=== PATIENT | female | born 1995 | race Caucasian/White ===

== ENCOUNTER → 2018-03-03 | Outpatient (CLI) | payer OTHER ==
[~2018-03-03] MED LIST: ALPR-429 PO; CEPH500C24 PO; LOR5/325 PO; OXYC-869 PO
[2018-03-03 10:13] LABS: PLATELET COUNT, AUTOMATED 332 K/uL (150-450)
== END ==
LOC: LAB 09:52
PROVIDERS: ATTEND Nurse Practitioner Family
DX: K59.00 Constipation, unspecified (principal); F41.9 Anxiety disorder, unspecified
CPT/HCPCS: 36415; 82040; 82247; 82310; 82374; 82435; 82565; 82947; 84075; 84132; 84155; 84295; 84443; 84450; 84460; 84520; 85025

== ENCOUNTER 2019-03-29 20:35 | Emergency (ER) | payer OTHER ==
[~2019-03-29 20:35] MED LIST changes: +ESZ3PT PO; +SERT-1 PO
[2019-03-29 20:48] VITALS: BP 117/87
--- NOTE | 2019-03-29 21:01 | ER Report ---
History and Physical Time Seen By MD: 20:52 HPI/ROS CHIEF COMPLAINT: suicidal thoughts and plan HISTORY OF PRESENT ILLNESS: This is a 23 year old female. She is having suicidal thoughts with plan to hang herself. Has been on sertraline, but not taking. Counselor suggested need to come to the hospital for treatment. She has prior suicidal thoughts, but no attempt. No prior hospitalization. Denies other medical problems at this time. Denies self harm behaviors tonight. No alcohol or drug use. REVIEW OF SYSTEMS: Constitutional: No fever or chills. ENT: No sore throat. No congestion. Cardiovascular: No chest pain. No palpitations or racing heart. Respiratory: No cough. No shortness of breath. Gastrointestinal: No abdominal pain. No nausea or vomiting. No diarrhea or problems with bowels. Genitourinary: No dysuria. No frequency Musculoskeletal: No musculoskeletal pain. Skin: No rashes. Neurological: No weakness. No headache. Allergies: Coded Allergies: No Known Drug Allergies (Unverified , 09/13/15) Home Meds Active Scripts Sertraline Hcl (ZOLOFT) 50 Mg Tablet, 1 TAB PO QDAY, #30 TAB 3 Refills Prov:CHARLY TRUJILLO MD 08/24/18 Discontinued Scripts Eszopiclone (LUNESTA) 3 Mg Tablet, 1 TAB PO HS PRN for sleeplessness, #10 TAB 0 Refills Prov:CHARLY TRUJILLO MD 10/05/18 Reviewed Nurses Notes: Yes Hx Smoking: No Smoking Status: Never Smoker Exposure to Second Hand Smoke?: No Hx Substance Use Disorder: No Hx Alcohol Use: No Constitutional Vital Sign - Last 24 Hours 03/29/19 20:48 Temp 99.5 Pulse 92 Resp 20 B/P (MAP) 117/87 Pulse Ox 93 O2 Delivery Room Air Physical Exam General Appearance: The patient is alert. No acute distress. Eyes: Pupils are equal, round. No pallor, injection or icterus. ENT: Mucous membranes are moist. Normal oral mucosa. Posterior oropharynx is normal. Neck: Supple and non tender. Respiratory: Lungs are clear to auscultation. Cardiovascular: Regular rate and rhythm. No murmurs, gallops or rubs. Normal capillary refill. Gastrointestinal: Abdomen is soft and non tender. Nondistended. Normal active bowel sounds. Neurological: Alert and oriented x3. Skin: Warm and dry. No rashes. Musculoskeletal: Full range of motion. No pain DIFFERENTIAL DIAGNOSIS: After history and physical exam, differential diagnosis was considered for suicidal thoughts with plan, needing to be admitted, and is voluntary for admission to [facility]. Medical Decision Making Data Points Result Diagram: 03/29/19 2100 03/29/19 2100 Laboratory Hematology Test 03/29/19 21:00 White Blood Count 9.1 k/uL (4.5-11.0) Red Blood Count 5.09 M/uL (4.17-5.56) Hemoglobin 15.5 g/dL (12.0-16.0) Hematocrit 43.3 % (34.0-47.0) Mean Corpuscular Volume 85.1 fL (80.0-96.0) Mean Corpuscular Hemoglobin 30.4 pg (26.0-33.0) Mean Corpuscular Hemoglobin Concent 35.7 g/dL (32.0-36.0) Red Cell Distribution Width 13.2 % (11.5-14.5) Platelet Count 413 K/uL (150-450) Mean Platelet Volume 7.1 fL (7.2-11.1) L Neutrophils (%) (Auto) 49.0 % (39.4-72.5) Lymphocytes (%) (Auto) 39.4 % (17.6-49.6) Monocytes (%) (Auto) 8.9 % (4.1-12.4) Eosinophils (%) (Auto) 2.1 % (0.4-6.7) Basophils (%) (Auto) 0.6 % (0.3-1.4) Nucleated RBC Relative Count (auto) 0.0 /100WBC Neutrophils # (Auto) 4.4 K/uL (2.0-7.4) Lymphocytes # (Auto) 3.6 K/uL (1.3-3.6) Monocytes # (Auto) 0.8 K/uL (0.3-1.0) Eosinophils # (Auto) 0.2 K/uL (0.0-0.5) Basophils # (Auto) 0.1 K/uL (0.0-0.1) Nucleated RBC Absolute Count (auto) 0.00 K/uL Chemistry Test 03/29/19 21:00 Sodium Level 138 mmol/L (137-145) Potassium Level 4.1 mmol/L (3.5-5.0) Chloride Level 102 mmol/L (98-107) Carbon Dioxide Level 25 mmol/L (22-31) Blood Urea Nitrogen 13 mg/dl (7-18) Creatinine 0.80 mg/dl (0.52-1.04) Glomerular Filtration Rate Calc > 60.0 Random Glucose 92 mg/dl (75-110) Calcium Level 9.3 mg/dl (8.4-10.2) Magnesium Level 2.2 mg/dl (1.7-2.2) Total Bilirubin 0.4 mg/dl (0.2-1.3) Aspartate Amino Transf (AST/SGOT) 21 U/L (0-35) Alanine Aminotransferase (ALT/SGPT) 27 U/L (0-56) Alkaline Phosphatase 71 U/L (0-126) Total Protein 7.7 g/dl (6.3-8.2) Albumin 4.3 g/dl (3.5-5.0) Toxicology Test 03/29/19 20:39 03/29/19 21:00 Urine Opiates Screen Negative Urine Barbiturates Screen Negative Ur Tricyclic Antidepressants Screen Negative Urine Phencyclidine Screen Negative Urine Amphetamines Screen Negative Urine Benzodiazepines Screen Negative Urine Cocaine Screen Negative Urine Cannabinoids Screen Negative Salicylates Level < 10 mg/L Salicylate Last Dose Date unk Acetaminophen Level < 10 ug/ml Serum Alcohol < 10 mg/dl Urinalysis Test 03/29/19 20:39 Urine Color Straw Urine Clarity Clear Urine pH 5.0 pH (4.8-9.5) Urine Specific [place] 1.014 Urine Protein Negative mg/dL (NEGATIVE) Urine Glucose (UA) Negative mg/dL (NEGATIVE) Urine Ketones Negative mg/dL (NEGATIVE) Urine Blood Negative (NEGATIVE) Urine Nitrite Negative (NEGATIVE) Urine Bilirubin Negative (NEGATIVE) Urine Urobilinogen Negative mg/dL (0.2-1.9) Urine Leukocyte Esterase Trace (NEGATIVE) Urine RBC 1 /HPF (0-2/HPF) Urine WBC 2 /HPF (0-5/HPF) Urine Squamous Epithelial Cells Many /LPF (</=FEW) Urine Bacteria Few /HPF (NONE-FEW) Urine Mucus None /HPF (NONE-FEW) Urine HCG, Qualitative Negative (NEGATIVE) ED Course/Re-evaluation ED Course Labs obtained. Unremarkable. Reviewed these with Dr. Tellez who accepted the patient to [facility] on voluntary basis. Decision to Disposition Date: Mar 29, 2019 Decision to Disposition Time: 21:59 Depart Departure Latest Vital Signs Vital Signs Date Time Temp Pulse Resp B/P (MAP) Pulse Ox O2 Delivery O2 Flow Rate FiO2 03/29/19 20:48 99.5 92 20 117/87 93 Room Air Impression: Primary Impression: Suicidal ideation Condition: Condition Unchanged Disposition: XFER TO [facility] Referrals: CHARLY TRUJILLO MD (PCP) SOWMYA NICHOLS MD Mar 29, 2019 21:01
[2019-03-29 21:26] LABS: PLATELET COUNT, AUTOMATED 413 K/uL (150-450)
[2019-03-30] MEDS ORDERED: TRAZ50TA52 PO (15:35)
== END 2019-03-29 22:26 ==
LOC: ER 20:48
DX: R45.851 Suicidal ideations (principal)
CPT/HCPCS: 36415; 80305; 80320; 80329; 81001; 81025; 82040; 82247; 82310; 82374; 82435; 82565; 82947; 83735; 84075; 84132; 84155; 84295; 84443; 84450; 84460; 84520; 85025; 99284

== ENCOUNTER 2019-03-29 22:21 | Inpatient (IN) | payer OTHER ==
[~2019-03-29] VITALS: Ht 165.1 cm; Wt 86.2 kg
[2019-03-29] MEDS ORDERED: LORazepam 1 MG TAB PO ONE (22:30)
[2019-03-29] MEDS ORDERED: ACETAMINOPHEN 325 MG TAB PO PRN (22:30)
[2019-03-29] MEDS ORDERED: MAG HYD/AL HYD/SIMETH 30ML UDC PO PRN (22:30)
[2019-03-29 22:54] VITALS: BP 113/82
[2019-03-30] MEDS: MULTIVITAMINS TAB PO SCH (08:17)
[2019-03-30] MEDS: SERTRALINE HCL 50 MG TAB PO SCH (12:15)
[2019-03-30] MEDS: buPROPion XL 150 MG TABCR PO SCH (12:15)
--- NOTE | 2019-03-30 14:36 | SCHAAF H&P ---
DATE OF ADMISSION: March 29, 2019. ATTENDING PHYSICIAN Marito Tellez MD The patient was seen at approximately 1100 hours on the a.m. of March 30, 2019 for note concerning this dictation. PRESENTING PROBLEM, CHIEF COMPLAINT "I had a suicide plan". HISTORY OF PRESENT ILLNESS This is very pleasant 23-year-old female depressed and anxious appearing, who was admitted through the emergency room on a voluntary basis expressing thought that she was thinking about hanging herself. The patient give multiple specific stressors in general and states she had been feeling worse and going downhill for about the last month. The patient continues to worry about finances. She states "Under a car loan that is hard". She reports she is mad at herself for gaining weight recently. She reports being stressed as she is the President of a latter-day youth group. The patient also has some ongoing negative interactions with her mother at times who assumes to pressure the patient. The patient herself reports that she had been eating more and gaining weight. She has much guilt and remorse over "letting people down in general, "letting people down in the family" and "letting people down in my latter-day". The patient reports poor energy, poor concentration, decreased interest in activity, poor sleep. She does report her mood is now a 4 out of 10 with 10 being good and this is improvement over 1 out of 10 when the patient reported to the emergency room with these suicidal thoughts. The patient denies any history of chiquita, psychosis. She has panic-like, attack-like symptoms associated with stress. She denies any symptoms that would constitute PTSD, but has nightmares about negative interactions with previous roommates that were nonlife threatening. The patient denies any phobias, anorexia, bulimia, OCD or self-harm issues. No other psychiatric concerns. MENTAL HEALTH HISTORY The patient reports this is her first admission to an inpatient psychiatric unit. She did see outpatient therapy for medication management therapy starting last April. The patient has no history of suicide attempt and currently she has been on Sertraline and trazodone prescribed by Dr. Chun and had seen Kailee Mcduffie for therapy. The patient reports not taking the sertraline and continues to use trazodone off and on. FAMILY PSYCHIATRIC HISTORY The patient reports that a sister who has anxiety. Another with depression and possibly anxiety and depression in her mother, although she reports that mental health is somewhat hushed in her family. She denies any history of alcohol or drug abuse in the family and no family history of suicide. PAST MEDICAL HISTORY The patient reports no significant health problems or concerns that she is aware of. She considers herself healthy and denies any allergies. SOCIAL HISTORY The patient was born in the country of [place]. Father was stationed there in the [employer]. They moved around until around the age of 16 where her father retired from the [employer] and taught at the University here in [place] and she was raised in [place] ever since. Her parents were at the time of her , they still are. She is the youngest of 5 children in the family. She has three older sisters and one older brother. The patient was a high school graduate with a good GPA of 3.8 or better and she did one year in college as well. She has been currently working at [employer] for 1 and a half years. She was never in the , never , and has no children and not in a relationship with a significant other. The patient puts a high priority in her life of being in the next 5 years and having children. She has spiritual beliefs of [employer]. LEGAL HISTORY No legal history. SUBSTANCE ABUSE HISTORY The patient denies any substance abuse. When using energy drinks occasionally the patient states they overall do what they were intended to do and the patient feels a boost of energy without significant problematic anxiety increase. PHYSICAL EXAMINATION Please see emergency room note. Notable for 23-year-old female. No acute medical distress. Vital signs at the time of admission: Temperature 99.4, pulse 92, respiratory rate 20, blood pressure 117/87 and pulse oximetry 93% on room air. LABORATORY DATA CBC unremarkable overall. CMP unremarkable. TSH pending at the time of dictation. Urinalysis did show trace leukocyte esterase with few urine bacteria. Negative screen. Toxicology screen negative with a nondetectable serum alcohol. MENTAL STATUS EXAMINATION GENERAL APPEARANCE, BEHAVIOR AND ATTITUDE: This is very pleasant, cooperative 23-year-old female interacting well with this provider and other treatment team staff. Making good eye contact. The patient tearful at times. No bizarre mannerisms or ticks. SPEECH: Within normal limits. Regular rate, rhythm, volume and tone. MOOD: Described as depressed with some anxiety. AFFECT: Constricted and mood-congruent. THOUGHT PROCESSES: Logical and goal-directed, no loose associations or flight of ideas. THOUGHT CONTENT: Free of auditory or visual hallucinations, ideas of reference, thought broadcastings, delusions, obsessions or compulsions. The patient adamantly suicidal or homicidal ideations now. The patient admitting to suicidal thoughts with intention to hang self prior to admission. SENSORIUM: Clear. COGNITION: Alert and oriented to person, place, time and situation. MEMORY: Immediate, recent and remote estimated intact. INTELLIGENCE: Average to above, based on interview. INSIGHT AND JUDGMENT: Considered grossly intact. The patient presenting for help on a voluntary basis. ASSESSMENT This is a very pleasant 23-year-old female who appears to have certainly an abundant amount of cluster C personality traits with avoidant and obsessive compulsive personality traits. The patient also potentially having a genetic basis of anxiety and depression. At this time, will consider Wellbutrin for its weight-negative affects and will monitor closely to see if any benefit is outweighed by potential increase in anxiety. Will continue to monitor. Will reuse Zoloft and trazodone and also obtain thyroid studies at this time. DIAGNOSES PER DSM-V 1. Persisting depressive disorder. 2. Cluster C personality traits. 3. Avoidant obsessive compulsive traits. 4. Supportive family overall. SOREND
[2019-03-30] MEDS ORDERED: TRAZ50TA52 PO (15:35)
[2019-03-30] MEDS ORDERED: traZODone HCL 50 MG TAB PO SCH (21:00)
[2019-03-31 05:13] VITALS: BP 124/76
[2019-03-31] MEDS: OMEGA-3 500 MG CAP PO SCH (08:26)
[2019-03-31] MEDS: CHOLECALCIFEROL 1000 UNIT TAB PO SCH (08:27)
[2019-03-31] MEDS: SERTRALINE HCL 50 MG TAB PO SCH (08:27)
[2019-03-31] MEDS: buPROPion XL 150 MG TABCR PO SCH (08:27)
[2019-03-31] MEDS: MULTIVITAMINS TAB PO SCH (08:27)
--- NOTE | 2019-03-31 11:28 | BHS Progress Note ---
[facility] - Subjective Progress Notes Subjective Patient interacting well this AM, yesterday demonstrating some cluster b traits, in help seeking/help rejecting behaviors. Tolerant of Wellbutrin yesterday, and reports positive experience with no increase in anxiety. Will increase trazadone to 150mg QHS, tonight, and will likely discharge tomorrow, as mood continues to improve. Suicidal Ideation: Resolving Homicidal Ideation: None [facility] - Objective Physical Exam Vital Signs Vital Signs Date Time Temp Pulse Resp B/P (MAP) Pulse Ox O2 Delivery O2 Flow Rate FiO2 03/31/19 05:13 99.3 82 14 124/76 (92) 93 Room Air Muscle Strength and Tone: WNL Gait and Station: Steady [facility] Medications Reviewed: Side Effects, Benefits of Medication, Risks Allergies Reviewed: Yes Mental Status Exam General Appearance: Casual, Well Groomed, Good Eye Contact, Cooperative, Polite, Good Interaction; No Tearful, No Psychomotor Agitation, No Psychomotor Retardation, No Bizarre Mannerisms, No Tics Speech: Clear, Spontaneous, Normal Rate, Normal Rhythm, Normal Volume, Normal Tone Mood: Dysthmic/Depressed (improving) Affect: Calm, Neutral; No Tearful, No Anxious, No Agitated Thought Process: Organized, Logical, Goal Directed; No Loose Associations, No Flight of Ideas Thought Content: Suicidal Ideation (resolving); No Homicidal Ideation, No Delusions, No Auditory Halllucinations, No Visual Hallucinations, No Thought Broadcasting, No Ideas of Reference, No Obsessions, No Compulsions Sensorium: Clear Cognition: Alert & Oriented-Person, Alert & Oriented-Place, Alert & Oriented- Time, Qnsxx-Vjowlqzt-Xcnptqpio Memory: Immediate, Recent, Remote Intelligence: Average Insight Judgment: Fair (improving, ) [facility] Assessment and Plan Xzjk-[id number] Encounter Date: Mar 31, 2019 Duhi-ug-Blrg Encounter Time: 11:00 [facility] Plan: Necessary Precautions, Individual/Group Therapy, Admin/Titrate Meds, Educate Patient Tobacco Medications: Not Appropriate Condition Multpiple Antipsychotics Used: No Problems: (1) Dysthymia Optional Permanent Comment: cluster C and B personality traits. Last Edited By: Soraida Sin on Mar 31, 2019 11:26 Status: Chronic Condition 1. increase trazodone. 2. repeat UA. SORAIDA SIN MD Mar 31, 2019 11:28
[2019-03-31] MEDS: TRIMETH/SULFA DS 160-800MG TAB PO SCH ×2 (15:21→20:49)
[2019-03-31] MEDS ORDERED: traZODone HCL 50 MG TAB PO SCH (21:00)
[2019-03-31 22:29] VITALS: BP 114/76
[2019-04-01 06:13] VITALS: BP 121/59
[2019-04-01] MEDS: CHOLECALCIFEROL 1000 UNIT TAB PO SCH (09:03)
[2019-04-01] MEDS: buPROPion XL 150 MG TABCR PO SCH (09:03)
[2019-04-01] MEDS: TRIMETH/SULFA DS 160-800MG TAB PO SCH (09:03)
[2019-04-01] MEDS: OMEGA-3 500 MG CAP PO SCH (09:03)
[2019-04-01] MEDS: SERTRALINE HCL 50 MG TAB PO SCH (09:04)
[2019-04-01] MEDS: MULTIVITAMINS TAB PO SCH (09:04)
--- NOTE | 2019-04-01 09:52 | Antimicrobial Stewardship ---
Antimicrobial Time Out Antimicrobial Stewardship MD Service: Other (Psychiatrist) Indications: UTI Antimicrobial Used Bactrim DS Start Date: Mar 31, 2019 Comments Comments Treat for at least 3 days. BRYANNA DOE Apr 01, 2019 09:52
[2019-04-01] MEDS ORDERED: SERT-184 PO (11:28)
[2019-04-01] MEDS ORDERED: BUPR-472 PO (11:29)
[2019-04-01] MEDS ORDERED: SULF-198 PO (11:29)
[2019-04-01] MEDS ORDERED: OMEG-11 PO ×2 (11:32→11:33)
[2019-04-01] MEDS ORDERED: TRAZ150T8 PO (11:33)
--- NOTE | 2019-04-01 12:34 | BHS Discharge Summary ---
[facility] Discharge Summary Exws-tv-Awko Encounter Date: Apr 01, 2019 Biia-ae-Kdqn Encounter Time: 10:00 Reason-Hosp/Final Diag (DSM-V): (1) Persistent depressive disorder Hospital Course & Plan: PRESENTING PROBLEM, CHIEF COMPLAINT "I had a suicide plan". HISTORY OF PRESENT ILLNESS This is very pleasant 23-year-old female depressed and anxious appearing, who was admitted through the emergency room on a voluntary basis expressing thought that she was thinking about hanging herself. The patient give multiple specific stressors in general and states she had been feeling worse and going downhill for about the last month. The patient continues to worry about finances. She states "Under a car loan that is hard". She reports she is mad at herself for gaining weight recently. 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 The patient also has some ongoing negative interactions with her mother at times who assumes to pressure the patient. The patient herself reports that she had been eating more and gaining weight. She has much guilt and remorse over "letting people down in general, "letting people down in the family" and "letting people down in my oriental orthodox". The patient reports poor energy, poor concentration, decreased interest in activity, poor sleep. She does report her mood is now a 4 out of 10 with 10 being good and this is improvement over 1 out of 10 when the patient reported to the emergency room with these suicidal thoughts. The patient denies any history of chiquita, psychosis. She has panic-like, attack-like symptoms associated with stress. She denies any symptoms that would constitute PTSD, but has nightmares about negative interactions with previous roommates that were nonlife threatening. The patient denies any phobias, anorexia, bulimia, OCD or self-harm issues. No other psychiatric concerns. MENTAL HEALTH HISTORY The patient reports this is her first admission to an inpatient psychiatric unit. She did see outpatient therapy for medication management therapy starting last April. The patient has no history of suicide attempt and currently she has been on Sertraline and trazodone prescribed by Dr. Chun and had seen Kailee Mcduffie for therapy. The patient reports not taking the sertraline and continues to use trazodone off and on. HOSPITAL COURSE Pt was admitted to [facility] and maintained on suicide precautions. She was active in her treatment, attending all groups and individual therapies. Medications were discussed and wellbutrin was added to her regimen, trazodone and sertraline were continued. Her father attended treatment team meeting and they communicated well, discussing ways the family can support her, she was able to verbalize to him that she is not ready to talk with her mother yet, but does want to work on their relationship. We discussed the possibility of them doing some family therapy in the future, and this was well-received. Pt's mood and affect brightened, and she denied any further suicidal ideation. She was discharged home with plans to follow up with Kailee Sauceda for therapy and with Dr. Chun for her medications. Physical Exam Latest Vital Signs Vital Signs 04/01/19 06:13 Temp 99.2 Pulse 75 Resp 15 B/P (MAP) 121/59 (79) Pulse Ox 94 O2 Delivery Room Air Mental Status Exam General Appearance: Casual, Well Groomed, Good Eye Contact, Cooperative, Polite, Good Interaction Speech: Clear, Spontaneous, Normal Rate, Normal Rhythm, Normal Volume, Normal Tone Mood: Euthymic Affect: Full and Appropriate, Calm Thought Process: Organized, Logical, Goal Directed; No Loose Associations, No Flight of Ideas Thought Content: No Suicidal Ideation, No Homicidal Ideation, No Delusions, No Auditory Halllucinations, No Visual Hallucinations, No Thought Broadcasting, No Ideas of Reference, No Obsessions, No Compulsions, No Other Sensorium: Clear Cognition: Alert & Oriented-Person, Alert & Oriented-Place, Alert & Oriented- Time, [id number]-[id number]-Shqiaoecg Memory: Immediate, Recent, Remote Intelligence: Average Insight Judgment: Good Departure Item Value Date Time Urine Color Yellow 03/31/19 1305 Urine Clarity Slightly-cloudy 03/31/19 1305 Urine pH 6.0 pH 03/31/19 1305 Urine Specific [place]loan 1.009 03/31/19 1305 Urine Protein Negative mg/dL 03/31/19 1305 Urine Glucose (UA) Negative mg/dL 03/31/19 1305 Urine Ketones Negative mg/dL 03/31/19 1305 Urine Blood Negative 03/31/19 1305 Urine Nitrite Negative 03/31/19 1305 Urine Bilirubin Negative 03/31/19 1305 Urine Urobilinogen Negative mg/dL 03/31/19 1305 Urine Leukocyte Esterase Small H 03/31/19 1305 Urine RBC 1 /HPF 8/15/19 1305 Urine WBC 10 /HPF 03/31/19 1305 Urine Squamous Epithelial Cells Moderate /LPF H 03/31/19 1305 Urine Bacteria Negative /HPF 03/31/19 1305 Urine Mucus None /HPF 03/31/19 1305 Salicylates Level < 10 mg/L 03/29/19 2100 Salicylate Last Dose Date unk 03/29/192099 Urine Opiates Screen Negative 03/29/192038 Acetaminophen Level < 10 ug/ml 03/29/192099 Urine Barbiturates Screen Negative 03/29/192038 Ur Tricyclic Antidepressants Screen Negative 03/29/192038 Urine Phencyclidine Screen Negative 03/29/192038 Urine Amphetamines Screen Negative 03/29/192038 Urine Benzodiazepines Screen Negative 03/29/192038 Urine Cocaine Screen Negative 03/29/192038 Urine Cannabinoids Screen Negative 03/29/192038 Serum Alcohol < 10 mg/dl 03/29/192099 Sodium Level 138 mmol/L 03/29/19 2100 Potassium Level 4.1 mmol/L 03/29/19 2100 Chloride Level 102 mmol/L 03/29/19 2100 Carbon Dioxide Level 25 mmol/L 03/29/192099 Blood Urea Nitrogen 13 mg/dl 03/29/19 2100 Creatinine 0.80 mg/dl 03/29/19 2100 Glomerular Filtration Rate Calc > 60.0 03/29/19 2100 Random Glucose 92 mg/dl 03/29/19 2100 Calcium Level 9.3 mg/dl 03/29/19 2100 Magnesium Level 2.2 mg/dl 03/29/19 2100 Total Bilirubin 0.4 mg/dl 03/29/19 2100 Aspartate Amino Transf (AST/SGOT) 21 U/L 03/29/19 2100 Alanine Aminotransferase (ALT/SGPT) 27 U/L 03/29/19 2100 Alkaline Phosphatase 71 U/L 03/29/19 2100 Total Protein 7.7 g/dl 03/29/19 2100 Albumin 4.3 g/dl 03/29/19 2100 Thyroid Stimulating Hormone (TSH) 4.47 uIU/ml 03/29/19 2100 White Blood Count 9.1 k/uL 03/29/19 2100 Red Blood Count 5.09 M/uL 03/29/19 2100 Hemoglobin 15.5 g/dL 8/13/19 2100 Hematocrit 43.3 % 03/29/192099 Mean Corpuscular Volume 85.1 fL 03/29/192099 Mean Corpuscular Hemoglobin 30.4 pg 03/29/192099 Mean Corpuscular Hemoglobin Concent 35.7 g/dL 03/29/192099 Red Cell Distribution Width 13.2 % 03/29/192099 Platelet Count 413 K/uL 03/29/192099 Mean Platelet Volume 7.1 fL L 03/29/192099 Neutrophils (%) (Auto) 49.0 % 03/29/192099 Lymphocytes (%) (Auto) 39.4 % 03/29/192099 Monocytes (%) (Auto) 8.9 % 03/29/192099 Eosinophils (%) (Auto) 2.1 % 03/29/192099 Basophils (%) (Auto) 0.6 % 03/29/192099 Nucleated RBC Relative Count (auto) 0.0 /100WBC 03/29/192099 Neutrophils # (Auto) 4.4 K/uL 03/29/192099 Lymphocytes # (Auto) 3.6 K/uL 03/29/192099 Monocytes # (Auto) 0.8 K/uL 03/29/192099 Eosinophils # (Auto) 0.2 K/uL 03/29/192099 Basophils # (Auto) 0.1 K/uL 03/29/192099 Nucleated RBC Absolute Count (auto) 0.00 K/uL 03/29/192099 Condition: Improved Discharge to: Home Discharge Instructions Home Meds Reported Medications Trazodone Hcl (TRAZODONE HCL) 150 Mg Tablet, 150 MG PO QHS, #30 2 Refills 04/01/19 [place]-3 Fatty Acids/Fish Oil (FISH OIL 1,000 MG CAPSULE) 1 Each Capsule, 1 EACH PO QDAY, CAPSULE 04/01/19 [place]-3 Fatty Acids/Fish Oil (FISH OIL 1,000 MG CAPSULE) 1 Each Capsule, 1 EACH PO QDAY, CAPSULE 04/01/19 Bupropion Hcl (WELLBUTRIN XL) 150 Mg Tab.er.24h, 150 MG PO QAM, #30 TAB 2 Refills 04/01/19 Sulfamethoxazole/Trimet 800-160 Mg Tab (BACTRIM DS TABLET) 1 Each Tablet, 1 TAB PO Q12H for 4 Days, #8 TAB 04/01/19 Sertraline Hcl (SERTRALINE HCL) 50 Mg Tablet, 1 TAB PO QAM, #30 TAB 2 Refills 04/01/19 Discontinued Reported Medications Trazodone Hcl (TRAZODONE HCL) 50 Mg Tablet, 1-2 TAB PO QHS 03/30/19 Discontinued Scripts Sertraline Hcl (ZOLOFT) 50 Mg Tablet, 1 TAB PO QDAY, #30 TAB 3 Refills Prov:CHARLY TRUJILLO MD 08/24/18 Eszopiclone (LUNESTA) 3 Mg Tablet, 1 TAB PO HS PRN for sleeplessness, #10 TAB 0 Refills Prov:CHARLY TRUJILLO MD 10/05/18 Multpiple Antipsychotics Used: No Diet: Regular Activity: As Tolerated Special Instructions: TAKE MEDICATIONS PRESCRIBED. UTILIZE COPING SKILLS TO ADDRESS ENVIROMENTAL AND SITUATIONAL STRESSORS. FOLLOW UP WITH OUTPATIENT PROVIDER AND THERAPIST FOR MEDICATION AND THERAPY MANAGEMENT. CALL THE CRISIS LINE AT [phone] OR RETURN TO NEAREST EMERGENCY DEPARTMENT. EL GORDON MD Apr 01, 2019 12:33
[2019-04-01 14:50] VITALS: BP 112/66
== END 2019-04-01 15:30 | disposition home or self-care (01) | DRG 881 ==
LOC: BHS 22:21
PROVIDERS: ADMIT Psychiatry & Neurology Psychiatry; ATTEND Psychiatry & Neurology Psychiatry
DX: F34.1 Dysthymic disorder (principal); R45.851 Suicidal ideations; R63.5 Abnormal weight gain; Z59.8 Other problems related to housing and economic circumstances; Z60.8 Other problems related to social environment
CPT/HCPCS: 81001; 87088